=== PATIENT | male | born 1975 | race Caucasian/White ===

== ENCOUNTER 2020-12-19 10:58 | Emergency (ER) | payer OTHER, SELFPAY ==
--- NOTE | 2020-12-19 11:11 | ED.SKABFB ---
HPI - Skin/Abscess/Foreign Bdy General Chief complaint: Skin/Abscess/Foreign Body Stated complaint: swelling under clemente arms Time Seen by Provider: 12/19/20 11:11 Source: patient and RN notes reviewed Mode of arrival: ambulatory Limitations: no limitations History of Present Illness HPI narrative: 45-year-old male presents to the [facility] with complaints of redness and swelling to bilateral axilla. No treatment prior to arrival. States it is painful. Related Data Allergies Allergy/AdvReac Type Severity Reaction Status Date / Time No Known Allergies Allergy Verified 12/19/20 11:16 Review of Systems Review of Systems: All systems reviewed & are unremarkable except as noted in HPI and below Constitutional: Constitutional: Reports no additional constitutional complaints, Denies chills and Denies fever(s) Eyes: Eyes: Reports no additional eye complaints ENT: Reports system reviewed and no additional complaints, except as documented and Denies sore throat Cardiovascular: Cardiovascular: Reports no additional cardiovascular complaints and Denies chest pain Respiratory: Respiratory: Reports no additional respiratory complaints, Denies cough and Denies dyspnea Musculoskeletal: Musculoskeletal: Reports no additional musculoskeletal complaints Integumentary/Breasts: Skin/Breast: Reports as per HPI and Reports erythema (Bilateral axilla) Neurologic: Reports system reviewed and no additional complaints, except as documented Psychiatric: Psychiatric: Reports no additional psychiatric complaints Allergic/Immunologic: Allergic/Immunologic: Reports no additional allergic/immunologic complaints PMFSH Past Medical History Medical History (Updated 12/19/20 @ 16:23 by Agustina Sanchez) No significant medical problems Surgical History Surgical History (Updated 12/19/20 @ 16:23 by Agustina Sanchez) No significant past surgical history Social History Social History (Updated 12/19/20 @ 16:23 by Agustina Sanchez) Substance use: never Living arrangements: with family Gender identity (if verbalized by the patient): Male Comments At the time of my signature, I reviewed and agree with the nursing past medical, surgical, social, and family history. There is no relevant family history pertinent to the patient complaint. Exam Const: General: healthy appearing, no acute distress and alert Nutritional Appearance: well nourished Orientation/consciousness: patient oriented x3 Limitations: no limitations HENMT: Head: normal to inspection Ears: external ears normal, TM's normal bilaterally and EAC's normal Eyes: Conjunctivae: conjunctivae normal Neck: Neck: normal visual inspection, no lymphadenopathy and no meningeal signs Chest: Chest palpation & inspection: normal inspection of the chest Resp: Effort & Inspection: normal respiratory effort Auscultation: clear to auscultation bilaterally Cardio: Rate: regular rate Rhythm: regular rhythm Back/Spine/Pelvis: Back: no CVA tenderness Skin: Other: 2 red raised areas without fluctuance to the right axilla. 2 red raised areas with increased warmth to the left axilla, no fluctuance. Neuro: General: patient oriented x3, moves all extremities, no meningeal signs and no focal motor deficits Speech: normal speech Gait exam (Neuro): Normal gait present Extrem: General: normal to inspection and no pedal edema Psych: Appearance: grossly normal and well kempt Mental Status: mental status grossly normal Affect: normal affect Attitude: cooperative Thought content: Yes Normal thought content present Course Course Emergency Course: Discharge instructions reviewed with patient, as well as provided in writing per nursing staff. The instructions also include specific and strict return/GO TO THE ER as well as f/u information. All questions have been answered, and the patient deny any further questions with discharge and discharge plan. Vital Signs Vital signs: Vital Signs Dahlgren
[2020-12-19 11:12] VITALS: BP 133/84; PULSE 89; RESP 18; TEMP 37.3; O2SAT 100
== END 2020-12-19 11:24 | disposition home or self-care (01) ==
PROVIDERS: Emergency Provider Nurse Practitioner
DX: L73.2 Hidradenitis suppurativa (principal)
CPT/HCPCS: 99213; G0463

== ENCOUNTER 2022-09-15 09:06 | Emergency (ER) | payer OTHER, SELFPAY ==
[2022-09-15 09:39] VITALS: BP 135/75; PULSE 65; RESP 18; TEMP 36.7; O2SAT 100
--- NOTE | 2022-09-15 10:13 | ED.GENADULT ---
HPI - General Adult General Chief complaint: Ear Stated complaint: rt earache Source: patient and RN notes reviewed History of Present Illness HPI narrative: 46-year-old male presents to urgent care with complaints of right TMJ pain. Patient was thinking it was his right ear. Patient was attempting to put peroxide in his ear without any relief. Patient states he feels the pain mostly he clenches down or open his jaw. Patient denies any dental pain, fevers, chills, sore, chest pain, or shortness of breath. Some parts of this dictation were generated by voice recognition software and may contain typographical and/or grammatical inaccuracies. Related Data Home Medications Medication Instructions Recorded Confirmed diclofenac sodium 75 mg 75 mg PO DAILY 09/15/22 09/15/22 tablet,delayed release lisinopril 10 mg tablet 10 mg PO DAILY 09/15/22 09/15/22 Allergies Allergy/AdvReac Type Severity Reaction Status Date / Time No Known Allergies Allergy Verified 09/15/22 09:45 Review of Systems Review of Systems: Pertinent positives and pertinent negatives per HPI. [facility] Past Medical History Medical History (Updated 09/15/22 @ 10:15 by Kait Sosa APRN) No significant medical problems Surgical History Surgical History (Updated 12/19/20 @ 16:23 by Agustina Sanchez APRN) No significant past surgical history Social History Social History (Updated 12/19/20 @ 16:23 by Agustina Sanchez APRN) Substance use: never Living arrangements: with family Gender identity (if verbalized by the patient): Male Comments At the time of my signature, I reviewed and agree with the nursing past medical, surgical, social, and family history. There is no relevant family history pertinent to the patient complaint. Exam Narrative: GENERAL: This is a well-nourished, well-developed patient, in no apparent distress. HEAD: normocephalic, atraumatic. EYES: Sclera clear/white. Vision is grossly intact. EARS: External ears normal, auditory canals clear and without drainage but erythremic bilaterally, TMs normal without perforation. Hearing grossly intact. NOSE: External nose normal with no obvious nasal discharge, nares without redness, no rhinorrhea. JAW: Pt has pain in his right TMJ, mostly when he clinches down and opens his jaw. THROAT: Mucous membranes moist, posterior pharynx clear. NECK: Neck supple, non-tender without lymphadenopathy, masses or thyromegaly. CARDIOVASCULAR: Regular rate and rhythm without murmurs, gallops, or rubs. RESPIRATORY: Clear to auscultation. Breath sounds equal bilaterally. No wheezes, rales, or rhonchi. SKIN: warm, intact with no suspicious lesions or rash, good texture and turgor. NEURO: awake, alert, and oriented to person, place and time. There were no obvious focal neurologic abnormalities. EXTREMITIES: No clubbing, cyanosis, or edema. No joint tenderness, effusion, or edema noted. BACK: Nontender without deformity or crepitus. No flank tenderness. Course Course Level of Care: Express Care Visit Vital Signs Vital signs: Vital Signs Temperature 98.1 F 09/15/22 09:39 Pulse Rate 65 09/15/22 09:39 Respiratory Rate 18 09/15/22 09:39 Blood Pressure 135/75 09/15/22 09:39 Pulse Oximetry 100 09/15/22 09:39 Oxygen Delivery Room Air 09/15/22 09:39 Temperature 98.1 F 09/15/22 09:39 Pulse Rate 65 09/15/22 09:39 Respiratory Rate 18 09/15/22 09:39 Blood Pressure 135/75 09/15/22 09:39 Pulse Oximetry 100 09/15/22 09:39 Oxygen Delivery Room Air 09/15/22 09:39 reviewed Medical Decision Making MDM Narrative Medical decision making narrative: Take the steroids as directed. If pain persists, follow up with ENT or your dentist. Differential Diagnosis Differential Diagnosis: AOM, otitis externa, TMJ Vital Signs Vital Signs: Vital Signs Temperature 98.1 F 09/15/22 09:39 Pulse Rate 65 09/15/22 09:39 Respiratory Rate 18 0
== END 2022-09-15 10:16 | disposition home or self-care (01) ==
PROVIDERS: Emergency Provider Nurse Practitioner Family; PCP Family Medicine
DX: M26.621 Arthralgia of right temporomandibular joint (principal)
CPT/HCPCS: 99213; G0463

== ENCOUNTER 2024-01-09 18:09 | Emergency (ER) | payer OTHER, SELFPAY ==
--- NOTE | 2024-01-09 18:14 | ED.URI ---
HPI - URI/Sore Throat General Chief Complaint: Upper Respiratory Infection Stated Complaint: sore throat / headache Time Seen by Provider: 01/09/24 18:14 Source: patient Mode of arrival: ambulatory Limitations: no limitations History of Present Illness HPI Narrative: Chi is a 48-year-old male patient presenting to the clinic today with complaints of sore throat, fatigue, and headache x1 week. He reports that his sister is a nurse practitioner she gave him 4 days worth of amoxicillin to take and he is taken nose but states he does not feel any improvement. He is leaving town this week so he is wanting to feel better. He has had possible strep exposure. He denies any fever, chills, body aches MD elicited complaint: sore throat and other Related Data Home Medications Medication Instructions Recorded Confirmed lisinopril 10 mg tablet 10 mg PO DAILY 09/15/22 01/09/24 levothyroxine 25 mcg tablet 25 mcg PO EVERY OTHER DAY 01/09/24 01/09/24 omeprazole 40 mg capsule,delayed 40 mg PO DAILY 01/09/24 01/09/24 release Allergies Allergy/AdvReac Type Severity Reaction Status Date / Time No Known Allergies Allergy Verified 01/09/24 18:11 Review of Systems Review of Systems: Pertinent positives per HPI. Patient denies any fever, chills, rash, headache, visual changes, dizziness, cough, shortness of breath, chest pain, palpitations, nausea, vomiting, diarrhea, constipation, abdominal pain, or any urinary issues. PMFSH Past Medical History Medical History No significant medical problems Surgical History Surgical History No significant past surgical history Social History Social History Substance use: never Living arrangements: with family Gender identity (if verbalized by the patient): Male Comments At the time of my signature, I reviewed and agree with the nursing past medical, surgical, social, and family history. There is no relevant family history pertinent to the patient complaint. Exam Narrative: General: Well-developed, well nourished, in no apparent distress Head: Normocephalic, atraumatic Eyes: Pupils equally round and reactive to light bilaterally, EOM intact, sclera and conjunctive clear, no discharge, lids normal Ears: TMs intact and clear, ear canals clear, no drainage, grossly hearing normal. Nose: Nares patent, clear nasal discharge, no inflammation, no sinus tenderness. Mouth: Oral pharynx red with ulcerated lesions to the right side of the oropharynx, no masses, good dentition, MMM. Neck: Supple, trachea midline, enlargement of anterior cervical nodes, no thyroid masses or goiter palpable. Cardio: Regular rate and rhythm, s1 and s2 normal, no murmur appreciated. Resp: Clear to auscultation bilaterally, no rhonchi, rales, wheezing or rubs Course Course Emergency Course: Portions of this record may have been created with voice recognition software. Level of Care: Express Care Visit Vital Signs Vital signs: Vital signs reviewed MDM - URI/Sore Throat MDM Narrative Medical decision making narrative: At the time of visit patient is resting comfortably on the exam table. Patient appears to be nontoxic. Labs: Strep and mono testing was performed and was negative in the clinic today. We will send strep for culture. Plan: I suspect patient has viral pharyngitis. Supportive measures were discussed with the patient and they voiced understanding discharge instructions and agrees to treatment plan. Return precautions reviewed Differential Diagnosis Differential diagnosis: Likely upper respiratory infection, otitis media, sinusitis, viral infection, bronchitis, influenza, pharyngitis and other (COVID) Discharge Plan Discharge Clinical Impression: Pharyngitis Qualifiers: Pharyngitis/tonsillitis etiology
[2024-01-09 18:17] VITALS: BP 143/87; PULSE 64; RESP 17; TEMP 36.5; O2SAT 100
[2024-01-09 18:35] LABS: EDMONONEGPOS Negative (Positive); EDSTREPNEGPOS1 Negative (Negative)
== END 2024-01-09 18:36 | disposition home or self-care (01) ==
PROVIDERS: Emergency Provider Nurse Practitioner Family; PCP Family Medicine
DX: J02.9 Acute pharyngitis, unspecified (principal)
CPT/HCPCS: 36416; 86308; 87081; 87880; 99213; G0463